=== PATIENT | female | born 1960 | race Asian ===

== ENCOUNTER 2019-03-25 23:55 | Emergency (ER) | payer SELFPAY ==
[~2019-03-25] VITALS: Ht 157.5 cm; Wt 57.2 kg
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
[2019-03-26] MEDS ORDERED: HYDROCODONE/APAP 5/325MG 1 EACH TABLET ONE (00:17)
--- NOTE | 2019-03-26 00:20 | NUR ---
XRAY AT BEDSIDE
[2019-03-26] MEDS ORDERED: HYDROCODONE/APAP 5/325MG 1 EACH TABLET PO ONE (00:30)
--- NOTE | 2019-03-26 01:40 | NUR ---
Patient discharged to home in stable condition. Written and verbal after care instructions given. Patient verbalizes understanding of instruction.
[2019-03-26 02:00] VITALS: BP 148/74
== END 2019-03-26 02:01 | disposition home or self-care (01) ==
LOC: ER 23:59
DX: R07.89 Other chest pain (principal); M25.561 Pain in right knee; M25.562 Pain in left knee
CPT/HCPCS: 71045-TC; 73564-TC